=== PATIENT | female | born 1955 | race Caucasian/White ===

== ENCOUNTER 2017-07-22 08:47 | Day surgery (SDC) | payer OTHER ==
[~2017-07-22 08:47] MED LIST: ACETAMINOPHEN 500 MG TABLET PO PRN; HYDROmorphone HCL 2 MG/ML VIAL IV PRN; MAG HYDROX/ALUMINUM HYD/SIMETH 30 ML UDC PO PRN; MAGNESIUM HYDROXIDE 30 ML UDC PO PRN; ONDANSETRON HCL/PF 2 MG/ML VIAL IV PRN; PROMETHAZINE HCL 25 MG in DEXTROSE 5 % IN WATER 50 ML IV PRN; RINGER'S SOLUTION,LACTATED 1,000 ML IV PRN; ZOLPIDEM TARTRATE 5 MG TABLET PO PRN; ceFAZolin SODIUM 1 GM VIAL IV PRN; diphenhydrAMINE HCL 50 MG/ML VIAL IV PRN; oxyCODONE HCL/ACETAMINOPHEN 1 TAB TABLET PO PRN
[2017-07-22] MEDS ORDERED: RINGER'S SOLUTION,LACTATED 1,000 ML IV ONE ×2 (10:40→12:07)
[2017-07-22] MEDS ORDERED: BUPIVACAINE HCL 50 ML VIAL IJ ONE (12:40)
--- NOTE | 2017-07-22 12:54 | POSTOP NO ---
Date of Surgery: 07/22/17 Patient Tolerated the Procedure: Well Post Operative Diagnosis/Procedures: Hammer Fitter: Frandy Perez PA-C Post-operative Diagnosis: Bilateral closed olecranon fractures Finding: Above Procedure: Open reduction internal fixation bilateral olecranon fractures with intraoperative interpretation of x-rays Estimated Blood Loss: Minimal Specimens: None
--- NOTE | 2017-07-22 13:11 | OR ---
Anesthesia Procedure Note - Anesthesia Procedure Note Date of Service: 07/22/17 Narrative: Vital Signs - Last Taken Temp 36.4 C L 07/22/17 13:00 Pulse 67 07/22/17 13:05 Resp 14 07/22/17 13:05 BP 173/81 07/22/17 13:05 Pulse Ox 97 07/22/17 13:05 O2 Oxygen Delivery Method Room Air 07/22/17 13:09 ANESTHESIA PROCEDURE NOTE Date of Procedure: 07/22/2017. Time of procedure: 1030. Performed by: Naresh Lovell CRNA Refrigerating Engineer: None. Preprocedure diagnosis: Bilateral closed olecranon fractures. Post procedure diagnosis: Same. Procedure: Left ultrasound guided axillary nerve block for postoperative analgesia. Indications: The patient is a 61 -year-old female, who is requesting a left ultrasound guided axillary nerve block for postoperative analgesia related to ORIF olecranon fracture. Findings: See below. Details of the procedure: The tissue over the intended target site was cleansed with ChloraPrep. 1 ml Lidocaine 1 % was infiltrated to the skin and subcutaneous tissue. Under sterile technique and ultrasound guidance a 22-gauge block needle was inserted to the left ulnar nerve. 5 mL's of 0.5% bupivacaine plus epinephrine 1:200,000 was injected after negative aspiration for blood. The needle was then advanced to the left median nerve. 10 mL of 0.5% bupivacaine plus epinephrine 1:200,000 was injected after negative aspiration for blood. The needle was then guided to the left radial nerve. 5 mL of 0.5% bupivacaine plus epinephrine 1 200,000 was injected after negative aspiration for blood . Finally the needle was guided to the musculocutaneous nerve where 5 mL of 0.5% bupivacaine plus epinephrine 1:200,000 was injected after negative aspiration for blood. Spread of local anesthetic around the nerves was observed throughout the injection with ultrasound visualization. The needle was removed intact. No complications were noted. The images were retained in the hospital medical database . EBL: Minimal. Fluids: N/A. Specimen: N/A. Post procedure condition: The patient tolerated the procedure well. No complications were noted. Thank you for this consultation. Naresh Lovell CRNA
[2017-07-22] MEDS ORDERED: HYDROcodone/ACETAMINOPHEN 1 EACH TABLET PO PRN (14:17)
[2017-07-22 15:15] VITALS: BP 166/84
[2017-07-22] MEDS ORDERED: SENNOSIDES/DOCUSATE SODIUM 1 TAB TABLET PO SCH (21:00)
== END 2017-07-22 08:48 | disposition home or self-care (01) ==
LOC: AMB 08:47
PROVIDERS: ATTEND Orthopaedic Surgery
PROC: 0PSK04Z Reposition Right Ulna with Internal Fixation Device, Open Approach (ICD-10-PCS; 2017-07-22)
PROC: 3E0T3BZ Introduction of Anesthetic Agent into Peripheral Nerves and Plexi, Percutaneous Approach (ICD-10-PCS; 2017-07-22)
PROC: 0PSL04Z Reposition Left Ulna with Internal Fixation Device, Open Approach (ICD-10-PCS; principal; 2017-07-22 12:00)
DX: S52.022A Displaced fracture of olecranon process without intraarticular extension of left ulna, initial encounter for closed fracture (principal); S52.021A Displaced fracture of olecranon process without intraarticular extension of right ulna, initial encounter for closed fracture; M19.90 Unspecified osteoarthritis, unspecified site; G47.00 Insomnia, unspecified; Z68.23 Body mass index [BMI] 23.0-23.9, adult; W01.0XXA Fall on same level from slipping, tripping and stumbling without subsequent striking against object, initial encounter
CPT/HCPCS: 24685; 64417; J2405